=== PATIENT | male | born 1985 | race Caucasian/White ===

== ENCOUNTER 2019-04-02 09:06 | Emergency (ER) | payer OTHER ==
[~2019-04-02] VITALS: Ht 180.3 cm; Wt 69.3 kg
[2019-04-02 09:06] VITALS: BP 152/103
== END 2019-04-02 10:05 | disposition home or self-care (01) ==
LOC: M ED 09:06
DX: F41.9 Anxiety disorder, unspecified (principal)

== ENCOUNTER 2019-06-20 06:50 | Emergency (ER) | payer BC, MEDICAID, OTHER ==
[~2019-06-20] VITALS: Ht 180.3 cm; Wt 64.3 kg
[2019-06-20] MEDS ORDERED: ALBU8.5H (07:03)
[2019-06-20] MEDS ORDERED: FLUTISP (07:03)
[2019-06-20] MEDS ORDERED: methylPREDNISolone INJ 125 MG/2 ML VIAL (J2930) IV ONE (07:45)
[2019-06-20] MEDS ORDERED: MAGNESIUM SULFATE 1GM/100ML D5W BAG (10MG/ML) As Ordered ONE (07:52)
[2019-06-20] MEDS: COMBIVENT RESPIMAT 100-20MCG INHALER 4GM INH SCH ×2 (07:59→08:36)
[2019-06-20 08:00] LABS: BASO # 0.1 10^3/uL (0.0-0.2); BASO % 0.5 % (0.0-1.0); EOS # 1.5 10^3/uL (0.0-0.5); EOS % 15.2 % (0.0-3.0); HEMATOCRIT 50.2 % (42.0-52.0); LYMPH # 2.2 10^3/uL (1.5-5.0); LYMPH % 21.7 % (24.0-44.0); MEAN CORPUSCULAR HGB CONC 33.9 g/dl (32.0-36.5); MEAN CORPUSCULAR VOLUME 88.5 fl (80.0-96.0); MONO # 0.6 10^3/uL (0.0-0.8); MONO % 5.9 % (0.0-5.0); NEUTROPHILS # 5.6 10^3/uL (1.5-8.5); NEUTROPHILS % 56.5 % (36.0-66.0); PLATELET COUNT, AUTOMATED 285 10^3/uL (150-450); RED BLOOD COUNT 5.67 10^6/uL (4.30-6.10); WHITE BLOOD COUNT 9.9 10^3/uL (4.0-10.0)
[2019-06-20] MEDS: MAG SULF 1GM/100ML (MAG RUN) 1 GM in IV 1 EA IV SCH ×2 (08:07→08:16)
[2019-06-20 08:25] LABS: ALBUMIN 4.3 GM/DL (3.2-5.2); ALT/SGPT 34 U/L (12-78); BILIRUBIN,TOTAL 1.4 MG/DL (0.2-1.0); BLOOD UREA NITROGEN 10 MG/DL (7-18); C REACTIVE PROTEIN QUANTITATIV 0.31 MG/DL (0.00-0.30); CALCIUM LEVEL 9.2 MG/DL (8.5-10.1); CARBON DIOXIDE LEVEL 27 MEQ/L (21-32); CHLORIDE LEVEL 104 MEQ/L (98-107); CREATININE FOR GFR 1.09 MG/DL (0.70-1.30); FERRITIN 80 NG/ML (26-388); GLOMERULAR FILTRATION RATE > 60.0 (>60); GLUCOSE, FASTING 92 MG/DL (70-100); LDH LACTATE DEHYDROGENASE 147 U/L (87-241); POTASSIUM SERUM 3.8 MEQ/L (3.5-5.1); SODIUM LEVEL 140 MEQ/L (136-145); TOTAL PROTEIN 8.1 GM/DL (6.4-8.2)
[2019-06-20 08:41] LABS: INR 1.05; PROTHROMBIN TIME 13.4 SECONDS (11.8-14.0)
[2019-06-20 08:42] LABS: PARTIAL THROMBOPLASTIN TIME 26.9 SECONDS (25.0-38.4)
[2019-06-20 08:54] LABS: D-DIMER QUANT < 270 ng/ml (<500)
[2019-06-20] MEDS ORDERED: PRED20TA PO (09:06)
[2019-06-20] MEDS ORDERED: PROAAER10 INH (09:06)
[2019-06-20 09:32] VITALS: BP 133/83
--- NOTE | 2019-06-20 10:06 | REP ---
CHEST, AP PORTABLE: There is no evidence of acute infiltrate. No pleural effusion is seen. The heart is normal in size. The mediastinal silhouette is unremarkable. The visualized osseous structures are intact. IMPRESSION: No acute pulmonary disease. Electronically Signed by Kenny Neville MD 06/20/2019 10:50 A
== END 2019-06-20 09:33 | disposition home or self-care (01) ==
LOC: M ED 06:50
DX: R05 Cough (principal); R06.09 Other forms of dyspnea; R17 Unspecified jaundice; R74.8 Abnormal levels of other serum enzymes; J45.909 Unspecified asthma, uncomplicated; Z79.51 Long term (current) use of inhaled steroids
CPT/HCPCS: 36415; 71045; 80053; 82728; 83605; 83615; 84145; 85025; 85379; 85610; 85730; 86140; 87040; 87486; 87581; 87633; 87798; 94640; 96374; 96375; 99284; J2930; J3475; U0002

== ENCOUNTER 2025-01-24 14:18 | Inpatient (IN) | payer OTHER ==
[~2025-01-24] VITALS: Ht 180.3 cm; Wt 58.9 kg
[~2025-01-24 14:18] MED LIST changes: -ACET-907 PO; -ADVA1AER10 INH; -ALBU8.5H INH; -ASPI81TA26 PO; -TRAM50TA2 PO
[2025-01-24] MEDS: PERCOCET 5MG/325MG TAB PO ONE (14:34)
[2025-01-24] MEDS ORDERED: ALBU8.5H INH (17:33)
[2025-01-24] MEDS ORDERED: ADVA1AER10 INH (17:33)
[2025-01-24] MEDS ORDERED: HOME MED LIST COMPLETE! XX SCH (17:35)
[2025-01-24 17:45] LABS: BASO # 0.0 10^3/uL (0.0-0.2); BASO % 0.3 % (0.0-1.0); EOS # 0.1 10^3/uL (0.0-0.5); EOS % 1.0 % (0.0-3.0); LYMPH # 2.2 10^3/uL (1.5-5.0); LYMPH % 21.4 % (24.0-44.0); MONO # 0.8 10^3/uL (0.0-0.8); MONO % 7.4 % (2.0-8.0); NEUTROPHILS # 7.2 10^3/uL (1.5-8.5); NEUTROPHILS % 69.6 % (36.0-66.0); PLATELET COUNT, AUTOMATED 215 10^3/uL (150-450)
[2025-01-24 18:10] LABS: INR 1.02
[2025-01-24 18:20] LABS: CALCIUM LEVEL 8.8 MG/DL (8.5-10.1); CARBON DIOXIDE LEVEL 27 MMOL/L (20-31); CHLORIDE LEVEL 102 MMOL/L (98-107); CREATININE FOR GFR 0.84 MG/DL (0.70-1.30); GLOMERULAR FILTRATION RATE > 90.0 (>60); POTASSIUM SERUM 4.1 MMOL/L (3.5-5.1); SODIUM LEVEL 140 MMOL/L (136-145)
[2025-01-24] MEDS ORDERED: MOM 30 ML SUSPENSION UDC PO PRN (18:40)
[2025-01-24] MEDS ORDERED: ONDANSETRON 4MG/2ML VIAL IV PRN (18:40)
[2025-01-24] MEDS ORDERED: MORPHINE 2 MG/ML 1 ML VIAL IV PRN (18:40)
[2025-01-24] MEDS: NS (Normal Saline) 0.9% 1,000 ML IV SCH (19:00)
[2025-01-24] MEDS: ENOXAPARIN 40 MG/0.4 ML SYRINGE (J1650 PER 10MG) SC SCH (21:26)
[2025-01-25] MEDS: ACETAMINOPHEN 325 MG TAB PO PRN (01:24)
[2025-01-25 08:13] LABS: PLATELET COUNT, AUTOMATED 193 10^3/uL (150-450)
[2025-01-25 08:48] LABS: ALT/SGPT 12 U/L (7.0-40); AST/SGOT 13 U/L (<34); CALCIUM LEVEL 8.3 MG/DL (8.5-10.1); CARBON DIOXIDE LEVEL 26 MMOL/L (20-31); CHLORIDE LEVEL 106 MMOL/L (98-107); CREATININE FOR GFR 0.76 MG/DL (0.70-1.30); GLOMERULAR FILTRATION RATE > 90.0 (>60); MAGNESIUM LEVEL 1.9 MG/DL (1.8-2.4); POTASSIUM SERUM 4.0 MMOL/L (3.5-5.1); SODIUM LEVEL 144 MMOL/L (136-145)
[2025-01-25] MEDS ORDERED: PERCOCET 5MG/325MG TAB PO PRN ×2 (12:35)
[2025-01-25] MEDS: MORPHINE 4 MG/ML 1 ML VIAL IV ONE (14:03)
[2025-01-25 14:12] VITALS: BP 126/83; TEMP 98.7; O2SAT 100
[2025-01-25 20:00] VITALS: BP 118/70; TEMP 97.9; O2SAT 18; O2SAT 97
[2025-01-26 04:00] VITALS: BP 149/97; TEMP 98.6; O2SAT 99
[2025-01-26 12:00] VITALS: BP 133/67; TEMP 98.4; O2SAT 98
[2025-01-26 20:00] VITALS: BP 129/69; TEMP 98.8; O2SAT 97
[2025-01-27 04:00] VITALS: BP 133/85; TEMP 98.7; O2SAT 99
[2025-01-27 12:55] VITALS: BP 149/78; TEMP 98.3; O2SAT 97
[2025-01-27] MEDS: MIRALAX *UNIT DOSE* 17 GM PACKET PO ONE (12:59)
[2025-01-27 20:06] VITALS: BP 127/64; TEMP 97.8; O2SAT 97
[2025-01-28 04:15] VITALS: BP 129/71; TEMP 98.3; O2SAT 99
[2025-01-28 11:54] VITALS: BP 136/72; TEMP 99.3; O2SAT 98
[2025-01-28] MEDS ORDERED: TRAM50TA2 PO (12:22)
[2025-01-28] MEDS ORDERED: ACET-907 PO (12:22)
[2025-01-28] MEDS ORDERED: ASPI81TA26 PO (12:22)
== END 2025-01-28 18:19 | disposition home health service (06) | DRG 340 ==
LOC: M ED 14:18 → M ED INP 18:40 → M MS4PR 01-25 14:12
PROVIDERS: ADMIT Internal Medicine; ATTEND Student in an Organized Health Care Education/Training Program
DX: S72.111A Displaced fracture of greater trochanter of right femur, initial encounter for closed fracture (principal); J45.909 Unspecified asthma, uncomplicated; Z79.51 Long term (current) use of inhaled steroids; V28.41XA Electric (assisted) bicycle driver injured in noncollision transport accident in traffic accident, initial encounter; Y93.89 Activity, other specified; Y92.410 Unspecified street and highway as the place of occurrence of the external cause; Y99.8 Other external cause status

== ENCOUNTER → 2025-01-24 | Outpatient (CLI) | payer OTHER ==
[~2025-01-24] MED LIST: ACET-907 PO; ADVA1AER10 INH; ALBU8.5H; ALBU8.5H INH; ASPI81TA26 PO; FLUTISP; PRED20TA PO; PROAAER10 INH; TRAM50TA2 PO
== END ==
LOC: M RAD 13:37
PROVIDERS: ATTEND Physician Assistant Medical
DX: S72.111A Displaced fracture of greater trochanter of right femur, initial encounter for closed fracture (principal); Y92.89 Other specified places as the place of occurrence of the external cause; Y93.89 Activity, other specified; Y99.8 Other external cause status

== ENCOUNTER → 2025-02-04 | Outpatient (CLI) | payer OTHER ==
[~2025-02-04] MED LIST changes: +ACET-907 PO; +ADVA1AER10 INH; +ALBU8.5H INH; +ASPI81TA26 PO; +TRAM50TA2 PO
== END ==
LOC: M SOG 07:36
PROVIDERS: ATTEND Orthopaedic Surgery
DX: M25.551 Pain in right hip (principal); Z53.9 Procedure and treatment not carried out, unspecified reason

== ENCOUNTER → 2025-02-08 | Outpatient (CLI) | payer OTHER | LOC: M SOG 07:47 | PROVIDERS: ATTEND Orthopaedic Surgery | DX: M25.551 Pain in right hip (principal) ==

== ENCOUNTER → 2025-02-22 | Outpatient (CLI) | payer OTHER | LOC: M SOG 07:34 | PROVIDERS: ATTEND Orthopaedic Surgery | DX: S72.111D Displaced fracture of greater trochanter of right femur, subsequent encounter for closed fracture with routine healing (principal) ==